=== PATIENT | female | born 1985 | race Caucasian/White ===

== ENCOUNTER 2018-12-10 13:31 | Day surgery (SDC) | payer OTHER ==
[~2018-12-10] VITALS: Ht 157.5 cm; Wt 101.2 kg
[~2018-12-10 13:31] MED LIST: ALBU90OI INH; Bactrim Ds Tab1 EACH PO; CIPR500 PO; DOXY100 PO; HYDACE10B PO; HYDGUAL120 PO; Keflex500 MG PO; MEDR10 PO; NAPR375 PO; NAPR500 PO; RXPHEN200 PO; RXPROACE PO; SERT100 PO; SULTRIDS PO; Zofran Odt4 MG SL; [UNRECOGNIZED DRUG - OTHER]
[2018-12-10] MEDS ORDERED: ALEVE220 MG PO (14:20)
--- NOTE | 2018-12-10 16:06 | NUR ---
12/10/18 1606 Suellen Ramos DISCHARGE INSTRUCTIONS GIVEN BY [facility].[place].
== END 2018-12-10 16:30 | disposition home or self-care (01) ==
LOC: ORSCSDS 13:31
PROVIDERS: Podiatrist Foot & Ankle Surgery
PROC: 0QSP04Z Reposition Left Metatarsal with Internal Fixation Device, Open Approach (ICD-10-PCS; principal; 2018-12-10 15:10)
DX: S92.352A Displaced fracture of fifth metatarsal bone, left foot, initial encounter for closed fracture (principal); F17.210 Nicotine dependence, cigarettes, uncomplicated; E66.01 Morbid (severe) obesity due to excess calories; Z68.41 Body mass index [BMI] 40.0-44.9, adult
CPT/HCPCS: C1713; J0690; J1100; J2250; J2405; J2704; J3010; J7120

== ENCOUNTER 2020-01-31 17:06 | Emergency (ER) | payer OTHER ==
[~2020-01-31] VITALS: Ht 157.5 cm; Wt 86.2 kg
[~2020-01-31 17:06] MED LIST changes: +ALEVE220 MG PO; +Augmentin 875-1 EACH PO; +CLIN300 PO
[2020-01-31] MEDS ORDERED: IBU800 M1 PO (18:30)
== END 2020-01-31 18:44 | disposition home or self-care (01) ==
LOC: ER 17:06
DX: M77.9 Enthesopathy, unspecified (principal); F17.210 Nicotine dependence, cigarettes, uncomplicated
CPT/HCPCS: 29125; 73100; 99283-25

== ENCOUNTER 2021-08-12 22:11 | Emergency (ER) | payer OTHER ==
[~2021-08-12] VITALS: Ht 157.5 cm; Wt 83.9 kg
[~2021-08-12 22:11] MED LIST changes: +IBU800 M1 PO
[2021-08-12 23:02] LABS: Source, Urine Clean Catch
[2021-08-12 23:06] LABS: Bilirubin, Urine Neg (Neg); Blood, Urine 5+ (Neg); Glucose Qualitative, Urine Neg (Neg); Ketones, Urine Neg (Neg); Leukocyte Esterase, Urine 2+ (Neg); Nitrite, Urine Neg (Neg); Protein, Urine 3+ (Neg); Urobilinogen, Urine NORM (Normal)
[2021-08-12 23:07] LABS: Appearance, Urine Cloudy (Clear); Color, Urine Red (P-Yellow)
[2021-08-12 23:11] LABS: Bacteria Few /hpf; Red Blood Cells, Urine TNTC /hpf (0-2); Squamous Epithelial Cells Few /hpf (Few)
[2021-08-12 23:39] LABS: BASOPHILS ABSOLUTE AUTO 0.06 K/mm3 (0.00-0.23); BASOPHILS PERCENT AUTO 1 % (0-2); EOSINOPHILS PERCENT AUTO 5 % (0-6); Hematocrit 42.9 % (33.0-51.0); Hemoglobin 15.1 g/dL (11.5-16.0); IMMATURE GRAN ABSOLUTE AUTO 0.05 K/mm3 (0.00-0.10); IMMATURE GRAN PERCENT AUTO 1 % (0-1); LYMPHOCYTES ABSOLUTE AUTO 2.77 K/mm3 (0.84-5.20); LYMPHOCYTES PERCENT AUTO 25 % (21-46); MONOCYTES ABSOLUTE AUTO 0.75 K/mm3 (0.16-1.47); MONOCYTES PERCENT AUTO 7 % (4-13); Mean Corpuscular HGB 33.1 pg (26.0-34.0); Mean Corpuscular HGB Conc 35.2 g/dL (31.5-36.5); Mean Corpuscular Volume 94 fL (80-100); Mean Platelet Volume 9.5 fL (9.1-12.4); NEUTROPHILS ABSOLUTE AUTO 6.93 K/mm3 (1.96-9.15); NEUTROPHILS PERCENT AUTO 63 % (41-73); Platelet Count 248 K/mm3 (150-400); RDW Coefficient Variation 12.6 % (11.7-14.2); RDW Standard Deviation 43.8 fL (35.1-46.3); Red Blood Cell Count 4.56 M/mm3 (3.80-5.20); White Blood Cell Count 11.06 K/mm3 (4.00-11.30)
[2021-08-12 23:51] LABS: Alanine Aminotransfer (ALT/SGP 43 U/L (12-78); Albumin/Globulin Ratio 1.2 (0.8-1.8); Alk Phos 67 U/L (50-136); Anion Gap 6 mmol/L (6-16); Aspartate Aminotrans (AST/SGOT 33 U/L (12-37); Bilirubin, Total 0.3 mg/dL (0.1-1.0); Blood Urea Nitrogen 11 mg/dL (8-24); Bun/Creatinine Ratio 14.6 (12.0-20.0); CO2, Blood 26 mmol/L (21-32); Calcium, Blood 9.3 mg/dL (8.5-10.1); Chloride, Blood 104 mmol/L (98-108); Creatinine, Blood 0.75 mg/dL (0.40-1.00); Globulin, Blood 3.3 g/dL (2.2-4.0); Glomerular Filtration Rate >60 (60-); Glucose, Blood 115 mg/dL (70-99); Potassium, Blood 4.5 mmol/L (3.5-5.5); Sodium, Blood 136 mmol/L (136-145); Total Protein, Blood 7.3 g/dL (6.4-8.2)
[2021-08-13] MEDS ORDERED: Norco 5-325 Ta1 EACH PO (00:43)
[2021-08-13] MEDS ORDERED: Flomax0.4 MG PO (00:43)
== END 2021-08-13 01:10 | disposition home or self-care (01) ==
LOC: ER 22:11
PROVIDERS: Student in an Organized Health Care Education/Training Program
DX: N13.2 Hydronephrosis with renal and ureteral calculous obstruction (principal); F17.210 Nicotine dependence, cigarettes, uncomplicated
CPT/HCPCS: 36415; 74176; 80053; 81001; 81025; 85025; 87086; 96374; 99284-25; A9270; J1885

== ENCOUNTER → 2024-08-03 | Outpatient (CLI) | payer OTHER ==
[~2024-08-03] MED LIST changes: +ASPERFLEX1 EACH TOP; +Flomax0.4 MG PO; +Norco 5-325 Ta1 EACH PO; +Robaxin750 MG PO
== END ==
LOC: PLD 08:30 → LAB 08:30 → LAB SHORT 08:30
DX: N92.1 Excessive and frequent menstruation with irregular cycle (principal)
CPT/HCPCS: 88305